=== PATIENT | male | born 1980 | race African-American/Black ===

== ENCOUNTER 2022-07-12 04:58 | Inpatient (IN) | payer SELFPAY ==
[2022-07-12] MEDS ORDERED: Aspirin Chewable 81 MG TAB ONE (05:14)
[2022-07-12] MEDS ORDERED: FENTANYL 50 MCG/ML 1 ML VIAL ONE (06:11)
[2022-07-12 06:12] LABS: #Eosinphils 0.1 thou/uL (0.0-0.7); #Lymphocytes 1.4 thou/uL (1.20-3.40); #Monocytes 0.6 thou/uL (0.11-0.59); #Neutrophils 4.8 thou/uL (1.40-6.50); %Basophils 0.7 % (0.0-1.0); %Eosinophils 0.8 % (0.0-10.0); %Neutrophils 69.5 % (42.0-75.0); Hemoglobin 13.4 g/dL (14.0-18.0); Mean Corpuscular HGB CONC 32.2 g/dL (32.0-36.0); Mean Corpuscular Hemoglobin 29.4 pg (27.0-31.0); Mean Corpuscular Volume 91.4 fl (78.0-98.0); Mean Platelet Volume 8.5 fL (7.4-10.4); Platelet Count 206 10x3/uL (130-400); RBC Distribution Width 13.2 % (11.5-14.5); Red Blood Cell (RBC) Count 4.55 mill/uL (4.70-6.10); White Blood Cell (WBC) Count 6.9 10x3/uL (4.8-10.8)
[2022-07-12 06:15] LABS: ALT (SGPT) 12 U/L (8-55); AST (SGOT) 14 U/L (5-34); Albumin 3.8 g/dL (3.5-5.0); Alkaline Phosphatase 82 U/L (40-110); Anion Gap 10 mmol/L (10-20); BUN (Urea Nitrogen) 7 mg/dL (8.9-20.6); Bilirubin, Total 1.3 mg/dL (0.2-1.2); Calc. Creatinine Clearance 0 mL/min (70-130); Calcium 9.1 mg/dL (7.8-10.44); Carbon Dioxide 26 mmol/L (22-29); Chloride 101 mmol/L (98-107); Estimated GFR 111; Globulin 3.4 g/dL (2.4-3.5); Glucose 103 mg/dL (70-105); Potassium 4.2 mmol/L (3.5-5.1); Protein, Total 7.2 g/dL (6.0-8.3); Sodium 133 mmol/L (136-145)
[2022-07-12 06:23] LABS: INR-International Normal Ratio 1.6; Prothrombin Time 19.8 sec (12.0-14.7)
[2022-07-12 06:24] LABS: PTT 46.1 sec (22.9-36.1)
[2022-07-12] MEDS ORDERED: Azithromycin 500 MG VIAL ONE (06:55)
[2022-07-12] MEDS ORDERED: cefTRIAXone\\ROCEPHIN 1 GM VIAL ONE (06:55)
[2022-07-12] MEDS ORDERED: Enoxaparin Sodium 80 MG/0.8 ML SYRINGE ONE (06:55)
[2022-07-12] MEDS ORDERED: Acetaminophen 325 MG TAB PO PRN (07:39)
[2022-07-12] MEDS ORDERED: Ondansetron ODT 4 MG TAB PO PRN (07:39)
[2022-07-12] MEDS ORDERED: Ondansetron PF 4 MG/2 ML Vial IVP PRN (07:39)
[2022-07-12 08:56] VITALS: BMI 21.4
[2022-07-12] MEDS: HYDROcodone/Acetaminophen 5/325 mg Tablet PO PRN ×2 (09:05→17:14)
[2022-07-12] MEDS: Sodium Chloride 0.9% 1,000 ML IV SCH ×2 (09:06→20:36)
[2022-07-12] MEDS: Nicotine 14 MG PATCH TD SCH (09:06)
[2022-07-12 09:14] LABS: Troponin I Less than 0.010 ng/mL (< 0.028)
[2022-07-12 12:20] LABS: Troponin I Less than 0.010 ng/mL (< 0.028)
[2022-07-12] MEDS ORDERED: Iopamidol-370 76% 500 ML 1 ML ONE (15:39)
[2022-07-12] MEDS: Enoxaparin Sodium 80 MG/0.8 ML SYRINGE SC SCH (20:33)
[2022-07-13] MEDS: HYDROcodone/Acetaminophen 5/325 mg Tablet PO PRN (05:30)
[2022-07-13] MEDS: cefTRIAXone\\ROCEPHIN 1 GM in Sodium Chloride 0.9% 100 ML IVPB SCH (06:07)
[2022-07-13 06:33] LABS: #Eosinphils 0.1 thou/uL (0.0-0.7); #Lymphocytes 1.8 thou/uL (1.20-3.40); #Monocytes 0.6 thou/uL (0.11-0.59); #Neutrophils 2.6 thou/uL (1.40-6.50); %Basophils 0.2 % (0.0-1.0); %Lymphocytes 35.8 % (21.0-51.0); Hemoglobin 12.4 g/dL (14.0-18.0); Mean Corpuscular HGB CONC 31.7 g/dL (32.0-36.0); Mean Corpuscular Hemoglobin 29.3 pg (27.0-31.0); Mean Corpuscular Volume 92.5 fl (78.0-98.0); Mean Platelet Volume 8.1 fL (7.4-10.4); Platelet Count 209 10x3/uL (130-400); Red Blood Cell (RBC) Count 4.21 mill/uL (4.70-6.10)
[2022-07-13 07:06] LABS: Anion Gap 10 mmol/L (10-20); Calc. Creatinine Clearance 138 mL/min (70-130); Calcium 9.1 mg/dL (7.8-10.44); Carbon Dioxide 27 mmol/L (22-29); Chloride 103 mmol/L (98-107); Estimated GFR 115; Glucose 87 mg/dL (70-105); Potassium 4.1 mmol/L (3.5-5.1); Sodium 136 mmol/L (136-145)
[2022-07-13] MEDS: Enoxaparin Sodium 80 MG/0.8 ML SYRINGE SC SCH ×2 (08:39→19:49)
[2022-07-13] MEDS: Azithromycin 500 MG in Sodium Chloride 0.9% 250 ML 250 ML IVPB SCH (08:40)
[2022-07-13] MEDS: Nicotine 14 MG PATCH TD SCH (08:40)
[2022-07-13] MEDS: Sodium Chloride 0.9% 1,000 ML IV SCH (08:40)
[2022-07-13 08:50] LABS: BUN (Urea Nitrogen) 6 mg/dL (8.9-20.6)
[2022-07-13 16:59] LABS: INR-International Normal Ratio 1.1; Prothrombin Time 14.3 sec (12.0-14.7)
[2022-07-13] MEDS: Warfarin Sodium 5 MG TAB PO SCH (17:19)
[2022-07-14] MEDS: cefTRIAXone\\ROCEPHIN 1 GM in Sodium Chloride 0.9% 100 ML IVPB SCH (06:17)
[2022-07-14 06:45] LABS: Prothrombin Time 13.5 sec (12.0-14.7)
[2022-07-14] MEDS: Enoxaparin Sodium 80 MG/0.8 ML SYRINGE SC SCH ×2 (08:17→20:17)
[2022-07-14] MEDS: Nicotine 14 MG PATCH TD SCH (08:19)
[2022-07-14] MEDS: Azithromycin 500 MG in Sodium Chloride 0.9% 250 ML 250 ML IVPB SCH (09:30)
[2022-07-14] MEDS: Warfarin Sodium 5 MG TAB PO SCH (17:22)
[2022-07-15] MEDS: cefTRIAXone\\ROCEPHIN 1 GM in Sodium Chloride 0.9% 100 ML IVPB SCH (06:21)
[2022-07-15 07:50] LABS: Hemoglobin 13.3 g/dL (14.0-18.0); Platelet Count 262 10x3/uL (130-400)
[2022-07-15 08:30] LABS: Prothrombin Time 13.6 sec (12.0-14.7)
[2022-07-15] MEDS: Enoxaparin Sodium 80 MG/0.8 ML SYRINGE SC SCH (08:51)
[2022-07-15] MEDS: Azithromycin 500 MG in Sodium Chloride 0.9% 250 ML 250 ML IVPB SCH (08:51)
[2022-07-15] MEDS: Nicotine 14 MG PATCH TD SCH (08:52)
[2022-07-15] MEDS ORDERED: Warfarin Sodium 3 MG TAB PO SCH (17:00)
[2022-07-15] MEDS: Apixaban 5 MG TAB PO SCH (20:39)
[2022-07-16] MEDS: cefTRIAXone\\ROCEPHIN 1 GM in Sodium Chloride 0.9% 100 ML IVPB SCH (06:09)
[2022-07-16 07:35] LABS: INR-International Normal Ratio 1.1; Prothrombin Time 15.1 sec (12.0-14.7)
[2022-07-16] MEDS: Apixaban 5 MG TAB PO SCH (08:52)
[2022-07-16] MEDS: Azithromycin 500 MG in Sodium Chloride 0.9% 250 ML 250 ML IVPB SCH (08:52)
[2022-07-16] MEDS: Nicotine 14 MG PATCH TD SCH (09:45)
[2022-07-16 10:39] VITALS: BP 114/78; TEMP 98
== END 2022-07-16 11:04 | disposition home or self-care (01) | DRG 175 ==
LOC: SUATTDRO 04:58 → ERS 04:58 → T4-A 08:51
PROVIDERS: ADMIT Family Medicine; ATTEND Family Medicine
DX: I26.99 Other pulmonary embolism without acute cor pulmonale (principal); J18.9 Pneumonia, unspecified organism; Z20.822 Contact with and (suspected) exposure to COVID-19; F17.210 Nicotine dependence, cigarettes, uncomplicated; Z86.711 Personal history of pulmonary embolism; Z79.01 Long term (current) use of anticoagulants
CPT/HCPCS: 36415; 71045; 71275; 80048; 80053; 83605; 83880; 84145; 84484; 85014; 85018; 85025; 85049; 85610; 85730; 86140; 87040; 93005; 96361; 96365; 96367; 96372; 96375; J0456; J0696; J1650; J3010; J3490; J7050; Q9967; U0003; U0005